=== PATIENT | male | born 1940 | race Caucasian/White ===

== ENCOUNTER 2023-11-09 15:05 | Emergency (ER) | payer MEDICARE, OTHER, SELFPAY ==
[2023-11-09 15:07] VITALS: BP 160/80
--- NOTE | 2023-11-09 16:25 | EDRN ---
Patient stated that he cut his right hand on a tree branch night. Patient stated that it was 'flapped over.' Came to ED today after his daughter saw it and it is not healing like he thought it would.
--- NOTE | 2023-11-09 17:11 | ED.GENMED ---
History of Present Illness
General
Chief Complaint: Skin Surface Trauma
Source: patient and family
Exam Limitations: none
Time Seen by Provider: 11/09/23 15:49
Nursing documentation reviewed up to this point in time: agreed with
History of Present Illness
History of Present Illness:
83-year-old male with medical history of hypertension presenting to the emergency department today with concerns of laceration to his right hand occurring 3 days ago at his home. Claims it was very clean has been cleaning with peroxide denies any
specific concerns but was seen by his daughter today and brought to the ER for assessment of this. Denies any fevers numbness or weakness.
Review of Systems
Review of Systems
Allergies reviewed?: Yes
All Other Systems: ROS reviewed and negative except as documented in HPI and ROS
Phy Exam
Physical Exam
Physical Exam:
GENERAL: Alert , in no apparent distress
EYE: pupils equal and reactive
NECK: Supple, no significant adenopathy.
ENT: o/p clr, mmm.
CARDIAC: Regular rate and rhythm .
LUNGS: Clear breath sounds bilaterally, no acute respiratory distress, no wheezes/rales/rhonchi
ABDOMEN: Soft, without focal tenderness, no r/g, no cvat
NEUROLOGICAL: Alert and oriented, no focal neuro deficits
SKIN: Laceration to the right hand 3 cm in length C-shaped on the thenar eminence no foreign body seen warm and dry, skin intact.
MUSCULOSKELETAL: No edema, well perfused.
PSYCH: Normal and appropriate interaction.
Course
Orders/Labs/Results
Orders:
Orders
11/09/23 16:39
Tetanus/Diphth/Acelpertussis [Adacel] 0.5 ml IM .ONCE ONE
Vital Signs
Initial and Last Documented VS:
Initial Vital Signs
Temp Pulse Resp BP Pulse Ox
98.4 F 74 17 160/80 99
11/09/23 15:07 11/09/23 15:07 11/09/23 15:07 11/09/23 15:07 11/09/23 15:07
Last Documented Vital Signs
Temp Pulse Resp BP Pulse Ox
98.4 F 74 17 160/80 99
11/09/23 15:07 11/09/23 15:07 11/09/23 15:07 11/09/23 15:07 11/09/23 15:07
MDM/Problems Addressed
MDM/Problems Addressed:
83-year-old male presenting to the emergency department today with concerns of a laceration to his right hand occurring at home on a clean sharp object at home initially was bleeding at home but controlled since. Has not bleeding over the past day
or so. Not on blood thinners. No history of immunosuppression claims that the areas been very clean no signs of infection here no redness or no tenderness. Area has no continued bleeding. Relatively superficial in depth no gaping. Options of
possible late closure versus healing from secondary intention were discussed. He opted to heal from secondary intention area was wrapped and was given proper wound care instructions return precautions were given.
*Critical Care Note
Total Time (30-74mins, 75-104mins- exclusive of procedures): Not Applicable
ED Attending Note
-
Portions of this chart may have been created with voice recognition software.� Occasional wrong word or��sound alike� substitutions may have occurred due to the inherent limitations of voice recognition software.
Discharge Plan
Departure
Patient Disposition: Home (Routine Discharge)
Date of Disposition: 11/09/23
Time of Disposition: 17:15
Patient with high blood pressure during this ER visit?: No
Condition: Good
Covid-19: Not Applicable
Discharge Problem:
Laceration of hand
Instructions: Wound Care (DC)
Referrals:
Tino Bird MD [Family Provider] -
Activity Restrictions/Additional Instructions:
You came to the emergency department today with concerns of a laceration. This was cleaned and covered with a bandage. Please keep the area clean and covered and follow-up closely as an outpatient. Return to the emergency department for any
worsening, new or concerning symptoms.
Interventions
Interventions:
*Risk Screen - Suicide Last Done: 11/09/23 16:08
*General Assessment Last Done: 11/09/23 16:08
*Neglect/Abuse Screening Last Done: 11/09/23 16:08
ED- Fall Risk Assessment Last Done: 11/09/23 16:08
*ED COVID-19 Vaccine History Last Done: 11/09/23 16:09
ED-Skin Assessment Last Done: 11/09/23 16:08
Discharge Date and Time
Print Language: TURKISH
[2023-11-09] MEDS: ADACEL 0.5 ML IM (17:25)
--- NOTE | 2023-11-09 17:30 | EDRN ---
Reviewed discharge instructions with patient. Verbalized understanding. Ambulated with steady gait to the lobby.
[2023-11-09 17:35] VITALS: BP 156/97
== END 2023-11-09 17:35 | disposition home or self-care (01) ==
LOC: EMR 15:05
PROVIDERS: EMERGENCY PHYSICIAN Student in an Organized Health Care Education/Training Program; FAMILY PHYSICIAN Internal Medicine
DX: S61.411A Laceration without foreign body of right hand, initial encounter (principal); W45.8XXA Other foreign body or object entering through skin, initial encounter; I10 Essential (primary) hypertension; Z23 Encounter for immunization
CPT/HCPCS: 99282; 90471; 90715